=== PATIENT | male | born 1955 | race Caucasian/White ===

== ENCOUNTER 2024-09-23 17:12 | Emergency (ER) | payer MEDICARE, SELFPAY ==
[2024-09-23 17:16] VITALS: BP 139/91
[2024-09-23 18:37] VITALS: BMI 26.3
--- NOTE | 2024-09-23 18:38 | EDRN ---
Dr. Carver in room w/pt.
--- NOTE | 2024-09-23 18:38 | EDRN ---
Dr. Carver in room w/ pt at this time.
--- NOTE | 2024-09-23 19:00 | ED.GENMED ---
History of Present Illness
General
Chief Complaint: Eye Problems
Time Seen by Provider: 09/23/24 18:09
History of Present Illness
History of Present Illness:
69-year-old male without significant past medical history presenting for left eye injury. Patient reports prior to arrival he was picking up swings outside and a twig poked him in his left eye. He since notes pain, tearing of the eye, blurred
vision. Denies any use of contacts. Denies any additional injuries.
Phy Exam
Physical Exam
Physical Exam:
General: Well-appearing, no clinical signs of dehydration, nontoxic and in no acute distress
HEENT: protecting airway, pupils equal and reactive, extraocular movements intact. Irritated left sclera with tearing
Neck: appears supple
CV: Normal heart rate
Resp: No accessory muscle use, no increased work of breathing
Abd: no distension
Extremities: No deformities, no swelling
Neuro: alert, no focal neurologic deficit
: deferred
Rectal: deferred
Psych: Normal affect
Skin: Intact
Course
Orders/Labs/Results
Orders:
Orders
09/23/24 18:45
Erythromycin (Ilotycin) [Erythromycin 0.5% Ophthalmic Ointment] See Dose Instructions OPHTH NOW STA
09/23/24 18:53
Fluorescein Sodium [Ful-Serina] 1 mg .ROUTE .STK-MED ONE
Tetracaine HCl [Tetracaine 0.5% Ophthalmic Solution] 1 drop .ROUTE .STK-MED ONE
Vital Signs
Initial and Last Documented VS:
Initial Vital Signs
Temp Pulse Resp BP Pulse Ox
97.6 F 72 18 139/91 95
09/23/24 17:16 09/23/24 17:16 09/23/24 17:16 09/23/24 17:16 09/23/24 17:16
Last Documented Vital Signs
Temp Pulse Resp BP Pulse Ox
97.6 F 72 18 139/91 95
09/23/24 17:16 09/23/24 17:16 09/23/24 17:16 09/23/24 17:16 09/23/24 19:01
MDM/Problems Addressed
MDM/Problems Addressed:
69-year-old male presenting for left eye injury. Vital signs are normal.
On exam, no obvious injury to the left eye, however does appear irritated with tearing and sclera. Given mechanism, likely corneal abrasion. Eye was anesthetized with tetracaine with improvement of symptoms. Extraocular movements are intact, no
significant pain with extraocular movements, without concern for infectious process or entrapment. No swelling to the orbit. Normal pressures bilaterally, 9 to the left eye, 10 to the right eye. No concern for increased pressure or glaucoma. On
fluorescein staining, obvious left corneal abrasion. Suspected etiology of symptoms. Negative Radha sign. Feel stable for discharge with antibiotics. Patient started on erythromycin ointment and instructed how to use. Advised outpatient
ophthalmology follow-up. Return precautions discussed patient verbalized understanding
*Pulse Oximetry
SaO2: 95
Oxygen Mode of Delivery: Room air
Patient hypoxic: no
*Critical Care Note
Total Time (30-74mins, 75-104mins- exclusive of procedures): Not Applicable
ED Attending Note
-
Portions of this chart may have been created with voice recognition software.� Occasional wrong word or��sound alike� substitutions may have occurred due to the inherent limitations of voice recognition software.
Discharge Plan
Departure
Patient Disposition: Home (Routine Discharge)
Date of Disposition: 09/23/24
Time of Disposition: 19:08
Patient with high blood pressure during this ER visit?: No
Condition: Good
Discharge Problem:
Abrasion of cornea, left
Instructions: Corneal Abrasion (DC)
Referrals:
Yonas Hayes MD [Family Provider, Family Practice]
Rajan Palma MD [Non-Admitting Privileges, Surgical]
Activity Restrictions/Additional Instructions:
You were seen in the emergency department for left eye irritation
You were found to have a corneal abrasion, which is a scratch over your cornea. You were started on an antibiotic. Please use a thin strip of medication to your lower eyelid 4 times a day and let the medication rest in your eye for a minute at a
time. Please follow-up with the eye doctor
Please follow-up closely with your primary care physician.
Return to the emergency department for any worsening of your symptoms, or any development of chest pain, difficulty breathing, abdominal pain with persistent vomiting and inability to tolerate food or liquid by mouth (concern for dehydration),
weakness, headache or confusion, fever greater than 100.4, or any additional symptoms that are concerning to you.
Thank you for choosing [facility].
Interventions
Interventions:
*Risk Screen - Suicide Last Done: 09/23/24 17:16
*General Assessment Last Done: 09/23/24 17:16
*ED COVID-19 Vaccine History Last Done: 09/23/24 17:16
Discharge Date and Time
Print Language: CAMEROONIAN
[2024-09-23] MEDS: ERYTHROMYCIN 0.5% OPHTHALMIC OINTMENT 1 APPLIC OPHTH (19:02)
[2024-09-23 19:18] VITALS: BP 117/74
== END 2024-09-23 19:19 | disposition home or self-care (01) ==
LOC: EMR 17:12
PROVIDERS: EMERGENCY PHYSICIAN Student in an Organized Health Care Education/Training Program; FAMILY PHYSICIAN Family Medicine
DX: S05.02XA Injury of conjunctiva and corneal abrasion without foreign body, left eye, initial encounter (principal); W22.8XXA Striking against or struck by other objects, initial encounter
CPT/HCPCS: 99283